=== PATIENT | male | born 1945 | race Caucasian/White ===

== ENCOUNTER 2017-03-31 11:33 | Inpatient (IN) | payer OTHER ==
[~2017-03-31] VITALS: Ht 172.7 cm; Wt 80.0 kg
[~2017-03-31 11:33] MED LIST: AMIO100T4 PO; ASPI325T80 PO; CARV25TA12 PO; EZET1TAB35 PO; LISI-465 PO; MAGN100T3 PO; MULT1TAB57 PO; NIAC500C8 PO; NITR0.4T SL
[2017-03-31] MEDS ORDERED: TRIA10.8 INH (12:22)
[2017-03-31] MEDS ORDERED: FURO20TA3 PO (12:22)
[2017-03-31] MEDS ORDERED: HYDR10TA4 PO (12:22)
[2017-03-31 12:28] LABS: BASOPHILS # (AUTO) 0.02 x10^3/uL (0-0.1); BASOPHILS % (AUTO) 0 % (0-1); EOSINOPHILS # (AUTO) 0.13 x10^3/uL (0-0.4); EOSINOPHILS % (AUTO) 3 % (1-7); LYMPHOCYTES # (AUTO) 1.33 x10^3/uL (1-3.4); LYMPHOCYTES % (AUTO) 25 % (22-44); MD NO; MEAN CORPUSCULAR HEMOGLOBIN 27.3 pg (27.5-34.5); MEAN CORPUSCULAR HGB CONC 32.8 g/dL (33.2-36.2); MEAN CORPUSCULAR VOLUME 83.2 fL (81-97); MEAN PLATELET VOLUME 8.8 fL (7.4-10.4); MONOCYTES # (AUTO) 0.48 x10^3/uL (0.2-0.8); MONOCYTES % (AUTO) 9 % (2-9); NEUTROPHILS # (AUTO) 3.37 x10^3/uL (1.8-6.8); NEUTROPHILS % (AUTO) 63 % (42-75); PLATELET COUNT 175 x10^3/uL (130-400); RED BLOOD COUNT 5.51 x10^6/uL (4.38-5.82); RED CELL DISTRIBUTION WIDTH 14.5 % (9.4-14.8)
[2017-03-31] MEDS ORDERED: NITROGLYCERIN SINGLE TAB 0.4 MG SL PRN (12:30)
[2017-03-31 12:37] LABS: ANION GAP 3 mmol/L (5-15); CALCIUM 8.9 mg/dL (8.5-10.1); CHLORIDE 108 mmol/L (98-107); CREATININE 1.17 mg/dL (0.7-1.3)
[2017-03-31] MEDS ORDERED: NITROGLYCERIN SINGLE TAB 0.4 MG SL ONE (12:40)
[2017-03-31] MEDS ORDERED: MIDAZOLAM 1 MG/ML, 2ML ONE ×2 (13:37→14:14)
[2017-03-31] MEDS ORDERED: LIDOCAINE 2%, 20ML ONE (13:38)
[2017-03-31] MEDS ORDERED: HEPARIN 1,000 UNITS/ML, 10ML ONE (13:38)
[2017-03-31] MEDS ORDERED: BIVALIRUDIN 250 MG ONE (13:38)
[2017-03-31] MEDS ORDERED: TICAGRELOR 90 MG TABLET ONE (13:38)
[2017-03-31] MEDS ORDERED: NITROGLYCERIN 5 MG/ML, 10ML ONE (13:38)
[2017-03-31] MEDS ORDERED: FENTANYL PF 100 MCG/2ML ONE (13:38)
[2017-03-31] MEDS ORDERED: NITROGLYCERIN 0.4 MG/SPRAY SL PRN (14:00)
[2017-03-31] MEDS ORDERED: ASPIRIN 325 MG TABLET EC PO ONE (14:00)
[2017-03-31] MEDS ORDERED: NITROGLYCERIN 0.4 MG BOTTLE (25 TABS) SL PRN ×2 (14:00)
[2017-03-31 14:05] LABS: CHOL/HDL RATIO 2.7; LDL/HDL RATIO 1.3 (0.5-3.0)
[2017-03-31] MEDS ORDERED: ACETAMINOPHEN 325 MG TABLET PO PRN (15:00)
[2017-03-31 15:55] VITALS: BP 118/66
[2017-03-31] MEDS: SODIUM CHLORIDE 0.9% 1,000 ML IV SCH (17:31)
[2017-03-31 19:17] VITALS: BP 123/62
[2017-03-31] MEDS: CARVEDILOL 12.5 MG TABLET PO SCH (20:20)
[2017-03-31] MEDS: SODIUM CHLORIDE FLUSH 10ML SYR IVF SCH (20:20)
[2017-03-31] MEDS ORDERED: AMIODARONE 200 MG TABLET PO SCH (21:00)
[2017-03-31] MEDS ORDERED: ASPIRIN 325 MG TABLET EC PO SCH (21:00)
[2017-03-31] MEDS ORDERED: SIMVASTATIN 40 MG TABLET PO SCH (21:00)
[2017-04-01] MEDS: SODIUM CHLORIDE 0.9% 1,000 ML IV SCH ×3 (00:10→09:57)
[2017-04-01 03:00] VITALS: BP 125/75
[2017-04-01 05:47] LABS: TROPONIN I 0.021 ng/mL (0.000-0.045)
[2017-04-01 05:52] LABS: ALBUMIN 3.3 g/dL (3.4-5.0); ANION GAP 7 mmol/L (5-15); CALCIUM 8.4 mg/dL (8.5-10.1); CHLORIDE 109 mmol/L (98-107); CREATININE 0.98 mg/dL (0.7-1.3)
[2017-04-01] MEDS ORDERED: ASPIRIN 325 MG TABLET EC PO SCH (06:00)
[2017-04-01 07:51] VITALS: BP 137/74
[2017-04-01] MEDS: SODIUM CHLORIDE FLUSH 10ML SYR IVF SCH (07:56)
[2017-04-01] MEDS: CARVEDILOL 12.5 MG TABLET PO SCH (07:56)
[2017-04-01] MEDS ORDERED: MAGNESIUM OXIDE 400 MG TABLET PO SCH (09:00)
[2017-04-01] MEDS ORDERED: hydrOXyzine 10MG TABLET PO SCH (09:00)
[2017-04-01] MEDS ORDERED: LISINOPRIL 5 MG TABLET PO SCH (09:00)
[2017-04-01] MEDS ORDERED: FUROSEMIDE 40 MG TABLET PO SCH (09:00)
[2017-04-01] MEDS ORDERED: MULTIVITAMIN 1 TABLET PO SCH (09:00)
[2017-04-01] MEDS ORDERED: SPIR25TA PO (10:47)
[2017-04-01] MEDS ORDERED: EZETIMIBE 10 MG TABLET PO SCH (21:00)
== END 2017-04-01 12:20 | disposition home or self-care (01) | DRG 287 ==
LOC: EDIP 13:32 → ED 13:47 → 5SO 15:38 → DCLOUNGE 04-01 11:54
PROVIDERS: ADMIT Internal Medicine Cardiovascular Disease; ATTEND Internal Medicine Cardiovascular Disease
PROC: 4A023N7 Measurement of Cardiac Sampling and Pressure, Left Heart, Percutaneous Approach (ICD-10-PCS; principal; 2017-03-31)
PROC: B2111ZZ Fluoroscopy of Multiple Coronary Arteries using Low Osmolar Contrast (ICD-10-PCS; 2017-03-31)
PROC: B2121ZZ Fluoroscopy of Single Coronary Artery Bypass Graft using Low Osmolar Contrast (ICD-10-PCS; 2017-03-31)
PROC: B2181ZZ Fluoroscopy of Left Internal Mammary Bypass Graft using Low Osmolar Contrast (ICD-10-PCS; 2017-03-31)
PROC: B2151ZZ Fluoroscopy of Left Heart using Low Osmolar Contrast (ICD-10-PCS; 2017-03-31)
DX: I25.110 Atherosclerotic heart disease of native coronary artery with unstable angina pectoris (principal); I11.0 Hypertensive heart disease with heart failure; I50.9 Heart failure, unspecified; I25.2 Old myocardial infarction; E78.5 Hyperlipidemia, unspecified; I25.5 Ischemic cardiomyopathy; Z79.82 Long term (current) use of aspirin; Z86.79 Personal history of other diseases of the circulatory system; Z87.891 Personal history of nicotine dependence; Z95.1 Presence of aortocoronary bypass graft; Z95.810 Presence of automatic (implantable) cardiac defibrillator
CPT/HCPCS: 36415; 71045; 80048; 80061; 82040; 84484; 85025; 93005; 93459; 99156; 99157; 99285; C1760; C1894; J0583; J1644; J2250; J3010; J3490; J7030; Q9967

== ENCOUNTER 2017-08-28 14:09 | Inpatient (IN) | payer OTHER ==
[~2017-08-28] VITALS: Ht 172.7 cm; Wt 78.8 kg
[~2017-08-28 14:09] MED LIST changes: +FURO20TA3 PO; +HYDR10TA4 PO; +SPIR25TA PO; +TRIA10.8 INH
[2017-08-28] MEDS ORDERED: HEPARIN 5,000 UNITS/ML, 1ML IV ONE (14:30)
[2017-08-28] MEDS ORDERED: METOPROLOL 1 MG/ML, 5ML IVPush PRN (14:30)
[2017-08-28] MEDS ORDERED: HEPARIN 5,000 UNITS/ML, 1ML ONE (14:35)
[2017-08-28] MEDS ORDERED: HEPARIN 25,000 UNITS/500ML PMX 500 ML ONE (14:36)
[2017-08-28] MEDS ORDERED: METOPROLOL 1 MG/ML, 5ML ONE ×2 (14:37→15:21)
[2017-08-28 14:51] LABS: T4 (THYROXINE) 11.7 mcg/dL (4.5-12.1)
[2017-08-28] MEDS: HEPARIN 25,000 UNITS/500ML PMX 500 ML IV PRN (14:54)
[2017-08-28 15:00] LABS: TROPONIN I 0.218 ng/mL (0.000-0.045)
[2017-08-28] MEDS ORDERED: AMIODARONE 900 MG in DEXTROSE 5% 482 ML IV PRN (15:00)
[2017-08-28] MEDS ORDERED: FILTER 0.22 MICRON IV ONE (15:00)
[2017-08-28] MEDS ORDERED: AMIODARONE 150 MG in DEXTROSE 5% 100 ML IV ONE (15:00)
[2017-08-28] MEDS ORDERED: hydrALAzine 20 MG/ML, 1ML IVPush PRN (16:30)
[2017-08-28] MEDS ORDERED: ACETAMINOPHEN 325 MG TABLET PO PRN (16:30)
[2017-08-28 16:49] VITALS: BP 113/71
[2017-08-28 17:03] LABS: BASOPHILS # (AUTO) 0.05 x10^3/uL (0-0.1); BASOPHILS % (AUTO) 1 % (0-1); EOSINOPHILS % (AUTO) 1 % (1-7); LYMPHOCYTES # (AUTO) 1.45 x10^3/uL (1-3.4); LYMPHOCYTES % (AUTO) 18 % (22-44); MD NO; MEAN CORPUSCULAR HGB CONC 32.9 g/dL (33.2-36.2); MEAN CORPUSCULAR VOLUME 85.1 fL (81-97); MEAN PLATELET VOLUME 8.8 fL (7.4-10.4); MONOCYTES # (AUTO) 0.44 x10^3/uL (0.2-0.8); MONOCYTES % (AUTO) 5 % (2-9); NEUTROPHILS # (AUTO) 6.25 x10^3/uL (1.8-6.8); NEUTROPHILS % (AUTO) 75 % (42-75); PLATELET COUNT 192 x10^3/uL (130-400); RED BLOOD COUNT 5.21 x10^6/uL (4.38-5.82); RED CELL DISTRIBUTION WIDTH 14.4 % (9.4-14.8)
[2017-08-28 17:14] LABS: ALANINE AMINOTRANSFERASE 28 U/L (12-78); ALBUMIN 3.7 g/dL (3.4-5.0); ANION GAP 8 mmol/L (5-15); CALCIUM 8.6 mg/dL (8.5-10.1); CHLORIDE 111 mmol/L (98-107); CREATININE 1.09 mg/dL (0.7-1.3)
[2017-08-28 17:18] LABS: ALKALINE PHOSPHATASE 65 U/L (45-117); BILIRUBIN,TOTAL 0.6 mg/dL (0.2-1.0); FREE T4 (FREE THYROXINE) 1.33 ng/dL (0.76-1.46); TOTAL PROTEIN 6.7 g/dL (6.4-8.2); TROPONIN I 0.356 ng/mL (0.000-0.045)
[2017-08-28 17:29] LABS: PROTHROMBIN TIME 11.4 Seconds (9.6-11.5)
[2017-08-28 19:18] VITALS: BP 99/56
[2017-08-28 21:36] LABS: TROPONIN I 0.629 ng/mL (0.000-0.045)
[2017-08-29 01:57] VITALS: BP 101/60
[2017-08-29 04:14] LABS: ALBUMIN 3.3 g/dL (3.4-5.0); ANION GAP 5 mmol/L (5-15); CALCIUM 8.3 mg/dL (8.5-10.1); CHLORIDE 109 mmol/L (98-107)
[2017-08-29 04:18] LABS: ALANINE AMINOTRANSFERASE 25 U/L (12-78); ALKALINE PHOSPHATASE 56 U/L (45-117); BILIRUBIN,TOTAL 0.6 mg/dL (0.2-1.0); CHOL/HDL RATIO 2.7; CHOLESTEROL, TOTAL 128 mg/dL (140-239); HDL CHOL % 38 % (26-37); HDL CHOLESTEROL (DIRECT) 48 mg/dL (40-60); LDL CHOLESTEROL,CALCULATED 63 mg/dL (54-169); LDL/HDL RATIO 1.3 (0.5-3.0); TOTAL PROTEIN 5.7 g/dL (6.4-8.2); TRIGLYCERIDES 86 mg/dL (50-200); VLDL CHOLESTEROL 17 mg/dL (0-25)
[2017-08-29 04:20] LABS: TROPONIN I 0.494 ng/mL (0.000-0.045)
[2017-08-29 04:24] LABS: BASOPHILS # (AUTO) 0.03 x10^3/uL (0-0.1); BASOPHILS % (AUTO) 1 % (0-1); EOSINOPHILS # (AUTO) 0.16 x10^3/uL (0-0.4); EOSINOPHILS % (AUTO) 3 % (1-7); LYMPHOCYTES % (AUTO) 25 % (22-44); MD NO; MEAN CORPUSCULAR HEMOGLOBIN 27.7 pg (27.5-34.5); MEAN CORPUSCULAR HGB CONC 32.2 g/dL (33.2-36.2); MEAN CORPUSCULAR VOLUME 86.2 fL (81-97); MEAN PLATELET VOLUME 8.8 fL (7.4-10.4); MONOCYTES # (AUTO) 0.46 x10^3/uL (0.2-0.8); MONOCYTES % (AUTO) 7 % (2-9); NEUTROPHILS # (AUTO) 4.06 x10^3/uL (1.8-6.8); NEUTROPHILS % (AUTO) 64 % (42-75); PLATELET COUNT 159 x10^3/uL (130-400); RED BLOOD COUNT 4.75 x10^6/uL (4.38-5.82); RED CELL DISTRIBUTION WIDTH 14.2 % (9.4-14.8)
[2017-08-29] MEDS: HEPARIN 5,000 UNITS/ML, 1ML IV PRN (04:42)
[2017-08-29 06:57] VITALS: BP 108/64
[2017-08-29 11:32] LABS: TROPONIN I 0.321 ng/mL (0.000-0.045)
[2017-08-29 14:20] VITALS: BP 108/64
[2017-08-29] MEDS: HEPARIN 25,000 UNITS/500ML PMX 500 ML IV PRN (15:14)
[2017-08-29] MEDS: AMIODARONE 450 MG in DEXTROSE 5% 241 ML IV PRN (15:15)
[2017-08-29] MEDS: ATORVASTATIN 80 MG TABLET PO SCH (19:31)
[2017-08-29 19:32] VITALS: BP 135/75
[2017-08-30 00:45] VITALS: BP 111/66
[2017-08-30 05:24] LABS: BASOPHILS # (AUTO) 0.04 x10^3/uL (0-0.1); BASOPHILS % (AUTO) 1 % (0-1); EOSINOPHILS # (AUTO) 0.09 x10^3/uL (0-0.4); EOSINOPHILS % (AUTO) 1 % (1-7); LYMPHOCYTES # (AUTO) 1.29 x10^3/uL (1-3.4); LYMPHOCYTES % (AUTO) 20 % (22-44); MD NO; MEAN CORPUSCULAR HEMOGLOBIN 28.3 pg (27.5-34.5); MEAN CORPUSCULAR HGB CONC 33.3 g/dL (33.2-36.2); MEAN CORPUSCULAR VOLUME 84.8 fL (81-97); MEAN PLATELET VOLUME 8.7 fL (7.4-10.4); MONOCYTES # (AUTO) 0.55 x10^3/uL (0.2-0.8); MONOCYTES % (AUTO) 9 % (2-9); NEUTROPHILS # (AUTO) 4.42 x10^3/uL (1.8-6.8); NEUTROPHILS % (AUTO) 69 % (42-75); PLATELET COUNT 158 x10^3/uL (130-400); RED BLOOD COUNT 5.07 x10^6/uL (4.38-5.82); RED CELL DISTRIBUTION WIDTH 14.5 % (9.4-14.8)
[2017-08-30 05:36] LABS: ANION GAP 8 mmol/L (5-15); CALCIUM 8.7 mg/dL (8.5-10.1); CHLORIDE 106 mmol/L (98-107); CREATININE 1.21 mg/dL (0.7-1.3)
[2017-08-30] MEDS: AMIODARONE 450 MG in DEXTROSE 5% 241 ML IV PRN (06:05)
[2017-08-30] MEDS: HEPARIN 5,000 UNITS/ML, 1ML IV PRN (06:05)
[2017-08-30 08:25] VITALS: BP 121/73
[2017-08-30] MEDS ORDERED: MIDAZOLAM 1 MG/ML, 5ML ONE (12:29)
[2017-08-30] MEDS ORDERED: VERAPAMIL 2.5 MG/ML, 2ML ONE (12:29)
[2017-08-30] MEDS ORDERED: TICAGRELOR 90 MG TABLET ONE (12:29)
[2017-08-30] MEDS ORDERED: FENTANYL PF 100 MCG/2ML ONE (12:29)
[2017-08-30] MEDS ORDERED: LIDOCAINE-MPF 2% ,5ML ONE (12:30)
[2017-08-30] MEDS ORDERED: HEPARIN 1,000 UNITS/ML, 10ML ONE (12:30)
[2017-08-30] MEDS ORDERED: BIVALIRUDIN 250 MG ONE (12:30)
[2017-08-30] MEDS ORDERED: LIDOCAINE/PF 1%, 30ML ONE (12:56)
[2017-08-30 13:40] VITALS: BP 143/81
[2017-08-30 16:39] VITALS: BP 106/67
[2017-08-30 19:53] VITALS: BP 113/64
[2017-08-30] MEDS: ATORVASTATIN 80 MG TABLET PO SCH (20:21)
[2017-08-31 01:00] VITALS: BP 148/76
[2017-08-31 06:58] VITALS: BP 145/79
[2017-08-31] MEDS ORDERED: AMIODARONE 200 MG TABLET PO SCH (09:00)
[2017-08-31 14:04] VITALS: BP 123/74
[2017-08-31 14:37] LABS: PARTIAL THROMBOPLASTIN TIME > 153 Seconds (25-31)
[2017-08-31 18:26] VITALS: BP 154/81
[2017-08-31] MEDS: CARVEDILOL 3.125 MG TABLET PO SCH (18:27)
[2017-08-31 18:48] VITALS: BP 125/68
[2017-08-31] MEDS: ATORVASTATIN 80 MG TABLET PO SCH (20:04)
[2017-08-31] MEDS ORDERED: MAGNESIUM HYDROXIDE 8%, 30ML UDC PO PRN (22:30)
[2017-08-31] MEDS ORDERED: MAGNESIUM HYDROXIDE 8%, 30ML UDC ONE (22:32)
[2017-09-01 00:33] VITALS: BP 125/72
[2017-09-01 06:34] VITALS: BP 145/77
[2017-09-01] MEDS: CARVEDILOL 3.125 MG TABLET PO SCH (06:36)
[2017-09-01 06:48] VITALS: BP 128/79
[2017-09-01] MEDS ORDERED: AMIODARONE 200 MG TABLET PO SCH (09:00)
[2017-09-01] MEDS ORDERED: LISINOPRIL 5 MG TABLET PO SCH (09:00)
[2017-09-01] MEDS ORDERED: AMIO200T42 PO ×2 (11:24)
[2017-09-01] MEDS ORDERED: ATOR-2 PO (11:24)
[2017-09-01] MEDS ORDERED: LISI5TAB7 PO (11:24)
[2017-09-01] MEDS ORDERED: CARVEDILOL 12.5 MG TABLET PO SCH (18:00)
== END 2017-09-01 15:24 | disposition home or self-care (01) | DRG 281 ==
LOC: ED 15:28 → EDIP 15:29 → ED 15:56 → 5SO 16:33 → DCLOUNGE 09-01 14:23
PROVIDERS: ADMIT Hospitalist; ATTEND Hospitalist
PROC: 4A023N7 Measurement of Cardiac Sampling and Pressure, Left Heart, Percutaneous Approach (ICD-10-PCS; principal; 2017-08-30)
PROC: B2111ZZ Fluoroscopy of Multiple Coronary Arteries using Low Osmolar Contrast (ICD-10-PCS; 2017-08-30)
PROC: B2151ZZ Fluoroscopy of Left Heart using Low Osmolar Contrast (ICD-10-PCS; 2017-08-30)
PROC: B2181ZZ Fluoroscopy of Left Internal Mammary Bypass Graft using Low Osmolar Contrast (ICD-10-PCS; 2017-08-30)
PROC: B21F1ZZ Fluoroscopy of Other Bypass Graft using Low Osmolar Contrast (ICD-10-PCS; 2017-08-30)
PROC: B2131ZZ Fluoroscopy of Multiple Coronary Artery Bypass Grafts using Low Osmolar Contrast (ICD-10-PCS; 2017-08-30)
DX: I21.4 Non-ST elevation (NSTEMI) myocardial infarction (principal); I25.810 Atherosclerosis of coronary artery bypass graft(s) without angina pectoris; I47.2 Ventricular tachycardia; I50.42 Chronic combined systolic (congestive) and diastolic (congestive) heart failure; E78.5 Hyperlipidemia, unspecified; I07.1 Rheumatic tricuspid insufficiency; I11.0 Hypertensive heart disease with heart failure; I25.5 Ischemic cardiomyopathy; I34.0 Nonrheumatic mitral (valve) insufficiency; I35.1 Nonrheumatic aortic (valve) insufficiency; Z79.899 Other long term (current) drug therapy; Z87.891 Personal history of nicotine dependence; Z95.1 Presence of aortocoronary bypass graft; Z95.810 Presence of automatic (implantable) cardiac defibrillator
CPT/HCPCS: 36415; 80048; 80053; 80061; 83735; 83880; 84100; 84436; 84439; 84443; 84484; 85025; 85520; 85610; 85730; 93005; 93306; 93459; 96365; 96375; 96376; 99156; 99157; 99291; C1760; C1769; C1894; J0583; J1644; J2250; J3010; J3490; J7060; J0282; Q9967

== ENCOUNTER 2019-03-24 06:30 | Day surgery (SDC) | payer OTHER ==
[~2019-03-24] VITALS: Ht 172.7 cm; Wt 77.3 kg
[~2019-03-24 06:30] MED LIST changes: +AMIO200T42 PO; +ASPI81TA45 PO; +ATOR-2 PO; +CARV12.543 PO; +CARV3.122 PO; +EZET1TAB65 PO; +HYDR-2995 PO; -HYDR10TA4 PO; +LISI5TAB7 PO; +LORA10TA72 PO; +MEXI150C PO; -NITR0.4T SL; +NITR0.4T41 SL; +POTA20TA14 PO; +TICA90TA PO
[2019-03-24] MEDS ORDERED: LIDOCAINE 1%, 20ML ONE (06:56)
[2019-03-24] MEDS ORDERED: FENTANYL PF 100 MCG/2ML ONE (06:56)
[2019-03-24] MEDS ORDERED: CEFAZOLIN PMX 1GM/50ML 50 ML ONE (06:56)
[2019-03-24] MEDS ORDERED: MIDAZOLAM 1 MG/ML, 2ML ONE ×2 (06:56→08:12)
[2019-03-24] MEDS ORDERED: CEFAZOLIN 1,000 MG ONE (06:57)
[2019-03-24] MEDS ORDERED: SODIUM CHLORIDE 0.9% 1,000 ML IV SCH (07:06)
[2019-03-24 07:10] VITALS: BP 142/73
[2019-03-24] MEDS ORDERED: FURO20TA3 PO (07:15)
[2019-03-24] MEDS ORDERED: CEFAZOLIN PMX 1GM/50ML 50 ML IVPB ONE (07:30)
[2019-03-24] MEDS ORDERED: EPHEDRINE 50 MG/ML, 1ML ONE (08:09)
[2019-03-24] MEDS ORDERED: ONDANSETRON 2MG/ML, 2ML ONE (08:09)
[2019-03-24] MEDS ORDERED: FENTANYL PF 250 MCG/5ML ONE (08:12)
[2019-03-24] MEDS ORDERED: DEXAMETHASONE 4 MG/ML, 1ML ONE (08:20)
[2019-03-24] MEDS ORDERED: SUCCINYLCHOLINE 20 MG/ML, 10ML ONE (08:23)
[2019-03-24] MEDS ORDERED: ROCURONIUM 10MG/ML,5ML ONE (08:23)
[2019-03-24] MEDS ORDERED: PROPOFOL 10 MG/ML, 20ML ONE (08:23)
[2019-03-24] MEDS ORDERED: NITROGLYCERIN SINGLE TAB 0.4 MG SL PRN (10:00)
[2019-03-24] MEDS ORDERED: EPHEDRINE 50 MG/ML, 1ML IVPush PRN (10:00)
[2019-03-24] MEDS ORDERED: HOLD MEDICATION MC PRN (10:00)
[2019-03-24] MEDS ORDERED: PROMETHAZINE 25 MG/ML, 1ML IV PRN (10:00)
[2019-03-24] MEDS ORDERED: ONDANSETRON ODT 8 MG PO PRN (10:00)
[2019-03-24] MEDS ORDERED: PROMETHAZINE 12.5 MG SUPP PR PRN (10:00)
[2019-03-24] MEDS ORDERED: LABETALOL 5MG/ML, 20ML IV PRN (10:00)
[2019-03-24] MEDS ORDERED: ONDANSETRON 2MG/ML, 2ML IV PRN (10:00)
[2019-03-24] MEDS ORDERED: ALBUTEROL SULFATE 2.5 MG/3 ML NPPB PRN (10:00)
[2019-03-24] MEDS ORDERED: MEPERIDINE/PF 25MG/ML,1ML IVPush PRN (10:00)
[2019-03-24] MEDS ORDERED: OXYcodone 5 MG/5 ML ORAL.SOL UDC PO PRN (10:00)
[2019-03-24] MEDS ORDERED: MIDAZOLAM 1 MG/ML, 2ML IV PRN (10:00)
[2019-03-24] MEDS ORDERED: hydrALAzine 20 MG/ML, 1ML IV PRN (10:00)
[2019-03-24] MEDS ORDERED: FENTANYL PF 100 MCG/2ML IV PRN (10:00)
[2019-03-24] MEDS ORDERED: DIAZEPAM 5 MG/ML, 2ML IVPush PRN (10:00)
[2019-03-24] MEDS ORDERED: HALOPERIDOL 5 MG/ML IV PRN (10:00)
[2019-03-24] MEDS ORDERED: HYDROmorphone 2 MG/ML, 1ML IVPush PRN (10:00)
[2019-03-24] MEDS ORDERED: ACETAMINOPHEN 325 MG TABLET PO PRN (10:00)
[2019-03-24 11:00] VITALS: BP 112/62
[2019-03-24 13:40] VITALS: BP 106/51
[2019-03-24] MEDS ORDERED: EZETIMIBE 10 MG TABLET PO SCH (21:00)
[2019-03-24] MEDS ORDERED: ATORVASTATIN 20 MG TABLET PO SCH (21:00)
[2019-03-24] MEDS ORDERED: SODIUM CHLORIDE FLUSH 10ML SYR IVF SCH (21:00)
[2019-03-24] MEDS ORDERED: MEXILETINE 150 MG CAPSULE PO SCH (21:00)
[2019-03-25] MEDS ORDERED: LORATADINE 10 MG TABLET PO SCH (09:00)
[2019-03-25] MEDS ORDERED: FUROSEMIDE 20 MG TABLET PO SCH (09:00)
[2019-03-25] MEDS ORDERED: LISINOPRIL 5 MG TABLET PO SCH (09:00)
[2019-03-25] MEDS ORDERED: ASPIRIN 81 MG TABLET EC PO SCH (09:00)
[2019-03-25] MEDS ORDERED: MULTIVITAMIN 1 TABLET PO SCH (09:00)
[2019-03-25] MEDS ORDERED: MAGNESIUM OXIDE 400 MG TABLET PO SCH (09:00)
[2019-03-25] MEDS ORDERED: AMIODARONE 200 MG TABLET PO SCH (09:00)
[2019-03-25] MEDS ORDERED: POTASSIUM CHLORIDE 20 MEQ TAB.ER.PRT PO SCH (09:00)
[2019-03-25] MEDS ORDERED: SPIRONOLACTONE 25 MG TABLET PO SCH (09:00)
== END 2019-03-24 15:17 | disposition home or self-care (01) ==
LOC: CACL 06:30 → 5SO 11:07 → CACL 15:17
PROVIDERS: ATTEND Internal Medicine Cardiovascular Disease
DX: I44.7 Left bundle-branch block, unspecified (principal); I11.0 Hypertensive heart disease with heart failure; I50.9 Heart failure, unspecified; I25.5 Ischemic cardiomyopathy; I47.2 Ventricular tachycardia; I45.89 Other specified conduction disorders; I25.10 Atherosclerotic heart disease of native coronary artery without angina pectoris; Z79.82 Long term (current) use of aspirin; Z79.899 Other long term (current) drug therapy; Z87.891 Personal history of nicotine dependence; Z88.5 Allergy status to narcotic agent; Z95.1 Presence of aortocoronary bypass graft
CPT/HCPCS: 33224; 36005; C1769; C1894; J0330; J0690; J1100; J2250; J2405; J2704; J3010; Q9967; G0378

== ENCOUNTER 2019-05-02 07:48 | Day surgery (SDC) | payer OTHER ==
[~2019-05-02] VITALS: Ht 172.7 cm; Wt 77.3 kg
[2019-05-02 08:52] VITALS: BP 140/72
[2019-05-02] MEDS ORDERED: SODIUM CHLORIDE 0.9% 1,000 ML IV SCH (10:00)
[2019-05-02] MEDS ORDERED: CEFAZOLIN PMX 1GM/50ML 50 ML IVPB ONE (10:00)
[2019-05-02] MEDS ORDERED: MIDAZOLAM 1 MG/ML, 5ML ONE (11:01)
[2019-05-02] MEDS ORDERED: FENTANYL PF 250 MCG/5ML ONE (11:01)
[2019-05-02] MEDS ORDERED: CEFAZOLIN PMX 1GM/50ML 50 ML ONE (11:02)
[2019-05-02] MEDS ORDERED: CEFAZOLIN 1,000 MG ONE (11:02)
[2019-05-02] MEDS ORDERED: LIDOCAINE 1%, 20ML ONE (11:02)
== END 2019-05-02 13:47 | disposition home or self-care (01) ==
LOC: CACL 07:48
PROVIDERS: ATTEND Internal Medicine Cardiovascular Disease
DX: Z45.02 Encounter for adjustment and management of automatic implantable cardiac defibrillator (principal); I25.5 Ischemic cardiomyopathy; I47.2 Ventricular tachycardia; I10 Essential (primary) hypertension; I25.10 Atherosclerotic heart disease of native coronary artery without angina pectoris; E78.5 Hyperlipidemia, unspecified; Z79.82 Long term (current) use of aspirin; Z79.899 Other long term (current) drug therapy; Z88.5 Allergy status to narcotic agent; Z88.8 Allergy status to other drugs, medicaments and biological substances; Z95.1 Presence of aortocoronary bypass graft
CPT/HCPCS: 33263; 99156; 99157; C1882; J0690; J2250; J3010; 33229

== ENCOUNTER → 2019-05-18 | Outpatient (CLI) | payer OTHER ==
[~2019-05-18] MED LIST changes: +REGADENOSON 0.4 MG/5 ML SYRINGE ONE
== END | disposition home or self-care (01) ==
LOC: CFH 12:14
PROVIDERS: ATTEND Internal Medicine Cardiovascular Disease
DX: I25.89 Other forms of chronic ischemic heart disease (principal); I25.5 Ischemic cardiomyopathy
CPT/HCPCS: 78452; 93017; A9502; J2785

== ENCOUNTER 2019-07-28 05:50 | Inpatient (IN) | payer OTHER ==
[~2019-07-28] VITALS: Ht 172.7 cm; Wt 79.4 kg
[~2019-07-28 05:50] MED LIST changes: -REGADENOSON 0.4 MG/5 ML SYRINGE ONE
[2019-07-28] MEDS ORDERED: SODIUM CHLORIDE 0.9% 1,000 ML IV SCH (06:22)
[2019-07-28 06:34] VITALS: BP 141/72
[2019-07-28] MEDS ORDERED: CEPH-376 PO (06:46)
[2019-07-28 06:56] LABS: BASOPHILS # (AUTO) 0.06 x10^3/uL (0-0.1); BASOPHILS % (AUTO) 1 % (0-1); EOSINOPHILS # (AUTO) 0.03 x10^3/uL (0-0.4); EOSINOPHILS % (AUTO) 1 % (1-7); LYMPHOCYTES # (AUTO) 0.95 x10^3/uL (1-3.4); LYMPHOCYTES % (AUTO) 16 % (22-44); MD NO; MEAN CORPUSCULAR HEMOGLOBIN 27.6 pg (27.5-34.5); MEAN CORPUSCULAR HGB CONC 32.6 g/dL (33.2-36.2); MEAN CORPUSCULAR VOLUME 84.6 fL (81-97); MEAN PLATELET VOLUME 8.2 fL (7.4-10.4); MONOCYTES # (AUTO) 0.51 x10^3/uL (0.2-0.8); MONOCYTES % (AUTO) 8 % (2-9); NEUTROPHILS # (AUTO) 4.43 x10^3/uL (1.8-6.8); NEUTROPHILS % (AUTO) 74 % (42-75); PLATELET COUNT 231 x10^3/uL (130-400); RED BLOOD COUNT 5.15 x10^6/uL (4.38-5.82); RED CELL DISTRIBUTION WIDTH 14.5 % (9.4-14.8)
[2019-07-28 07:05] LABS: ANION GAP 9 mmol/L (5-15); CALCIUM 8.6 mg/dL (8.5-10.1); CHLORIDE 108 mmol/L (98-107); CREATININE 1.37 mg/dL (0.7-1.3)
[2019-07-28] MEDS ORDERED: FENTANYL PF 250 MCG/5ML ONE (08:01)
[2019-07-28] MEDS ORDERED: ROCURONIUM 10 MG/ML,10ML ONE (08:17)
[2019-07-28] MEDS ORDERED: ONDANSETRON 2MG/ML, 2ML ONE ×3 (08:17→16:09)
[2019-07-28] MEDS ORDERED: SUCCINYLCHOLINE 20 MG/ML, 10ML ONE (08:17)
[2019-07-28] MEDS ORDERED: PROPOFOL 10 MG/ML, 20ML ONE (08:17)
[2019-07-28] MEDS ORDERED: CEFAZOLIN 1,000 MG ONE (08:31)
[2019-07-28] MEDS ORDERED: LIDOCAINE 1%, 20ML ONE (08:45)
[2019-07-28] MEDS ORDERED: EPHEDRINE 50 MG/ML, 1ML ONE (11:12)
[2019-07-28] MEDS ORDERED: HOLD MEDICATION MC PRN (11:30)
[2019-07-28] MEDS ORDERED: NITROGLYCERIN SINGLE TAB 0.4 MG SL PRN (11:30)
[2019-07-28] MEDS ORDERED: EPHEDRINE 50 MG/ML, 1ML IVPush PRN (11:30)
[2019-07-28] MEDS ORDERED: PROMETHAZINE 25 MG/ML, 1ML IVPush PRN (11:30)
[2019-07-28] MEDS ORDERED: DIAZEPAM 5 MG/ML, 2ML IVPush PRN (11:30)
[2019-07-28] MEDS ORDERED: DIPHENHYDRAMINE 50 MG/ML, 1ML IVPush PRN (11:30)
[2019-07-28] MEDS ORDERED: EPHEDRINE 50 MG/ML, 1ML IM PRN (11:30)
[2019-07-28] MEDS ORDERED: HYDROmorphone 1 MG/ML, 1ML INJ IVPush PRN (11:30)
[2019-07-28] MEDS ORDERED: LORATADINE 10 MG TABLET PO PRN (11:30)
[2019-07-28] MEDS ORDERED: EPHEDRINE 50 MG/ML, 1ML IVPush ONE (11:30)
[2019-07-28] MEDS ORDERED: OXYcodone 5 MG/5 ML ORAL.SOL UDC PO PRN (11:30)
[2019-07-28] MEDS ORDERED: FENTANYL PF 100 MCG/2ML IV PRN (11:30)
[2019-07-28] MEDS ORDERED: ONDANSETRON 2MG/ML, 2ML IVPush PRN (11:30)
[2019-07-28 13:03] VITALS: BP 92/59
[2019-07-28 13:24] VITALS: BP 92/63
[2019-07-28] MEDS ORDERED: CEPHALEXIN 500 MG CAPSULE PO SCH (16:00)
[2019-07-28] MEDS: ONDANSETRON 2MG/ML, 2ML IVPush PRN (16:12)
[2019-07-28] MEDS: CEFTAROLINE 600 MG in SODIUM CHLORIDE 0.9% 100 ML IV SCH (18:22)
[2019-07-28 18:41] LABS: HCT (SEDRATE) 39.4 % (39.2-51.8)
[2019-07-28 18:43] LABS: ALBUMIN 3.2 g/dL (3.4-5.0); ANION GAP 8 mmol/L (5-15); C-REACTIVE PROTEIN, QUANT 0.78 mg/dL (0.02-0.49); CALCIUM 8.1 mg/dL (8.5-10.1); CHLORIDE 107 mmol/L (98-107)
[2019-07-28 18:45] LABS: MEAN CORPUSCULAR HEMOGLOBIN 27.7 pg (27.5-34.5); MEAN CORPUSCULAR HGB CONC 32.5 g/dL (33.2-36.2); MEAN CORPUSCULAR VOLUME 85.3 fL (81-97); MEAN PLATELET VOLUME 8.1 fL (7.4-10.4); PLATELET COUNT 206 x10^3/uL (130-400); RED BLOOD COUNT 4.62 x10^6/uL (4.38-5.82); RED CELL DISTRIBUTION WIDTH 14.7 % (9.4-14.8)
[2019-07-28 18:46] LABS: ALANINE AMINOTRANSFERASE 48 U/L (12-78); ALKALINE PHOSPHATASE 78 U/L (45-117); BILIRUBIN,TOTAL 0.8 mg/dL (0.2-1.0); CREATININE 1.25 mg/dL (0.7-1.3); TOTAL PROTEIN 6.4 g/dL (6.4-8.2)
[2019-07-28 19:11] LABS: MD YES
[2019-07-28 19:16] LABS: <RBC MORPHOLOGY> NORMAL; BAND#(MANUAL) 0.11 x10^3/uL; BANDS%(MANUAL) 1 % (0-7); LYMPH#(MANUAL) 0.34 x10^3/uL (1-3.4); LYMPHS% (MANUAL) 3 % (22-44); MONOS#(MANUAL) 0.68 x10^3/uL (0.3-2.7); MONOS% (MANUAL) 6 % (2-9); SEG#(MANUAL) 10.26 x10^3/uL (1.8-6.8); SEGS% (MANUAL) 90 % (42-75)
[2019-07-28 19:17] LABS: <PLATELET ESTIMATE> ADEQUATE; <PLT MORPHOLOGY> NORMAL PLT MORPH
[2019-07-28 20:57] VITALS: BP 95/55
[2019-07-28] MEDS: SODIUM CHLORIDE FLUSH 10ML SYR IVF SCH (21:00)
[2019-07-28] MEDS: EZETIMIBE 10 MG TABLET PO SCH (22:54)
[2019-07-28] MEDS: SIMVASTATIN 40 MG TABLET PO SCH (22:55)
[2019-07-28] MEDS: MEXILETINE 150 MG CAPSULE PO SCH (22:55)
[2019-07-29 01:19] VITALS: BP 84/45
[2019-07-29 03:29] VITALS: BP 93/54
[2019-07-29] MEDS: CEFTAROLINE 600 MG in SODIUM CHLORIDE 0.9% 100 ML IV SCH ×2 (06:00→18:40)
[2019-07-29 06:58] VITALS: BP 91/52
[2019-07-29] MEDS: SODIUM CHLORIDE FLUSH 10ML SYR IVF SCH ×2 (09:27→20:02)
[2019-07-29] MEDS: ASPIRIN 81 MG TABLET EC PO SCH (09:27)
[2019-07-29] MEDS: MEXILETINE 150 MG CAPSULE PO SCH ×2 (09:27→20:01)
[2019-07-29] MEDS: MULTIVITAMIN 1 TABLET PO SCH (09:28)
[2019-07-29] MEDS: FUROSEMIDE 20 MG TABLET PO SCH (09:28)
[2019-07-29] MEDS: AMIODARONE 200 MG TABLET PO SCH (09:28)
[2019-07-29] MEDS: MAGNESIUM OXIDE 400 MG TABLET PO SCH (09:29)
[2019-07-29] MEDS: POTASSIUM CHLORIDE 20 MEQ TAB.ER.PRT PO SCH (09:30)
[2019-07-29] MEDS: SPIRONOLACTONE 25 MG TABLET PO SCH (09:30)
[2019-07-29] MEDS: LISINOPRIL 5 MG TABLET PO SCH (09:41)
[2019-07-29 12:58] VITALS: BP 91/57
[2019-07-29] MEDS: ONDANSETRON 2MG/ML, 2ML IVPush PRN ×2 (13:45→18:40)
[2019-07-29 19:43] VITALS: BP 92/50
[2019-07-29] MEDS: EZETIMIBE 10 MG TABLET PO SCH (20:01)
[2019-07-29] MEDS: SIMVASTATIN 40 MG TABLET PO SCH (20:01)
[2019-07-30 01:07] VITALS: BP 125/64
[2019-07-30] MEDS: ONDANSETRON 2MG/ML, 2ML IVPush PRN (01:18)
[2019-07-30] MEDS: CEFTAROLINE 600 MG in SODIUM CHLORIDE 0.9% 100 ML IV SCH ×2 (06:19→18:08)
[2019-07-30 06:53] VITALS: BP 95/57
[2019-07-30] MEDS: POTASSIUM CHLORIDE 20 MEQ TAB.ER.PRT PO SCH (09:12)
[2019-07-30] MEDS: MAGNESIUM OXIDE 400 MG TABLET PO SCH (09:12)
[2019-07-30] MEDS: FUROSEMIDE 20 MG TABLET PO SCH (09:12)
[2019-07-30] MEDS: SPIRONOLACTONE 25 MG TABLET PO SCH (09:12)
[2019-07-30] MEDS: MULTIVITAMIN 1 TABLET PO SCH (09:12)
[2019-07-30] MEDS: ASPIRIN 81 MG TABLET EC PO SCH (09:12)
[2019-07-30] MEDS: AMIODARONE 200 MG TABLET PO SCH (09:13)
[2019-07-30] MEDS: MEXILETINE 150 MG CAPSULE PO SCH ×2 (09:13→21:20)
[2019-07-30] MEDS: SODIUM CHLORIDE FLUSH 10ML SYR IVF SCH ×2 (09:14→19:52)
[2019-07-30] MEDS: LISINOPRIL 5 MG TABLET PO SCH (11:16)
[2019-07-30 11:17] VITALS: BP 100/63
[2019-07-30 13:09] VITALS: BP 111/61
[2019-07-30] MEDS: CEFAZOLIN PMX 2GM/50ML 50 ML IVPB SCH (19:51)
[2019-07-30] MEDS: EZETIMIBE 10 MG TABLET PO SCH (19:51)
[2019-07-30] MEDS: SIMVASTATIN 40 MG TABLET PO SCH (19:52)
[2019-07-30 19:55] VITALS: BP 90/48
[2019-07-30 21:19] VITALS: BP 90/51
[2019-07-31 01:47] VITALS: BP 78/47
[2019-07-31 02:34] VITALS: BP 93/51
[2019-07-31] MEDS: CEFAZOLIN PMX 2GM/50ML 50 ML IVPB SCH ×3 (04:02→19:45)
[2019-07-31 05:56] LABS: MEAN CORPUSCULAR HEMOGLOBIN 27.5 pg (27.5-34.5); MEAN CORPUSCULAR HGB CONC 32.5 g/dL (33.2-36.2); MEAN CORPUSCULAR VOLUME 84.4 fL (81-97); MEAN PLATELET VOLUME 8.8 fL (7.4-10.4); PLATELET COUNT 164 x10^3/uL (130-400); RED BLOOD COUNT 4.04 x10^6/uL (4.38-5.82); RED CELL DISTRIBUTION WIDTH 14.7 % (9.4-14.8)
[2019-07-31 06:18] LABS: BASOPHILS # (AUTO) 0.02 x10^3/uL (0-0.1); BASOPHILS % (AUTO) 0 % (0-1); EOSINOPHILS # (AUTO) 0.02 x10^3/uL (0-0.4); EOSINOPHILS % (AUTO) 0 % (1-7); LYMPHOCYTES # (AUTO) 0.63 x10^3/uL (1-3.4); LYMPHOCYTES % (AUTO) 7 % (22-44); MD SCAN; MONOCYTES # (AUTO) 0.94 x10^3/uL (0.2-0.8); MONOCYTES % (AUTO) 10 % (2-9); NEUTROPHILS # (AUTO) 8.07 x10^3/uL (1.8-6.8); NEUTROPHILS % (AUTO) 83 % (42-75)
[2019-07-31 06:25] VITALS: BP 101/46
[2019-07-31 08:55] LABS: CLOSTRIDIUM DIFFICILE ANTIGEN POSITIVE; CLOSTRIDIUM DIFFICILE TOXIN NEGATIVE (Negative)
[2019-07-31] MEDS: SODIUM CHLORIDE FLUSH 10ML SYR IVF SCH ×2 (09:00→21:00)
[2019-07-31] MEDS ORDERED: PROPOFOL 10 MG/ML, 20ML ONE (09:26)
[2019-07-31] MEDS: MEXILETINE 150 MG CAPSULE PO SCH ×2 (11:08→21:58)
[2019-07-31] MEDS: LISINOPRIL 5 MG TABLET PO SCH (11:08)
[2019-07-31] MEDS: MULTIVITAMIN 1 TABLET PO SCH (11:08)
[2019-07-31] MEDS: FUROSEMIDE 20 MG TABLET PO SCH (11:08)
[2019-07-31] MEDS: MAGNESIUM OXIDE 400 MG TABLET PO SCH (11:08)
[2019-07-31] MEDS: AMIODARONE 200 MG TABLET PO SCH (11:08)
[2019-07-31] MEDS: POTASSIUM CHLORIDE 20 MEQ TAB.ER.PRT PO SCH (11:08)
[2019-07-31] MEDS: ASPIRIN 81 MG TABLET EC PO SCH (11:09)
[2019-07-31] MEDS: SPIRONOLACTONE 25 MG TABLET PO SCH (11:09)
[2019-07-31 12:28] VITALS: BP 95/58
[2019-07-31] MEDS ORDERED: HYDROcodone/APAP 5/325 TABLET PO PRN (13:00)
[2019-07-31 19:35] VITALS: BP 112/58
[2019-07-31] MEDS: SIMVASTATIN 40 MG TABLET PO SCH (21:58)
[2019-07-31] MEDS: EZETIMIBE 10 MG TABLET PO SCH (21:58)
[2019-07-31 23:58] VITALS: BP 91/52
[2019-08-01] MEDS: CEFAZOLIN PMX 2GM/50ML 50 ML IVPB SCH ×3 (03:51→20:22)
[2019-08-01 06:26] VITALS: BP 101/62
[2019-08-01] MEDS: FUROSEMIDE 20 MG TABLET PO SCH (08:56)
[2019-08-01] MEDS: ASPIRIN 81 MG TABLET EC PO SCH (08:56)
[2019-08-01] MEDS: MULTIVITAMIN 1 TABLET PO SCH (08:57)
[2019-08-01] MEDS: AMIODARONE 200 MG TABLET PO SCH (08:57)
[2019-08-01] MEDS: MAGNESIUM OXIDE 400 MG TABLET PO SCH (08:57)
[2019-08-01] MEDS: POTASSIUM CHLORIDE 20 MEQ TAB.ER.PRT PO SCH (08:57)
[2019-08-01] MEDS: SODIUM CHLORIDE FLUSH 10ML SYR IVF SCH ×2 (09:41→20:24)
[2019-08-01] MEDS: LISINOPRIL 5 MG TABLET PO SCH (09:41)
[2019-08-01] MEDS: SPIRONOLACTONE 25 MG TABLET PO SCH (09:41)
[2019-08-01] MEDS: MEXILETINE 150 MG CAPSULE PO SCH ×2 (09:41→20:23)
[2019-08-01 13:04] VITALS: BP 111/62
[2019-08-01 18:08] VITALS: BP 81/45
[2019-08-01] MEDS: EZETIMIBE 10 MG TABLET PO SCH (20:23)
[2019-08-01] MEDS: SIMVASTATIN 40 MG TABLET PO SCH (20:23)
[2019-08-02 00:46] VITALS: BP 91/50
[2019-08-02] MEDS: CEFAZOLIN PMX 2GM/50ML 50 ML IVPB SCH ×3 (03:56→20:59)
[2019-08-02 08:10] VITALS: BP 95/56
[2019-08-02] MEDS: FUROSEMIDE 20 MG TABLET PO SCH (09:27)
[2019-08-02] MEDS: POTASSIUM CHLORIDE 20 MEQ TAB.ER.PRT PO SCH (09:27)
[2019-08-02] MEDS: AMIODARONE 200 MG TABLET PO SCH (09:27)
[2019-08-02] MEDS: MEXILETINE 150 MG CAPSULE PO SCH ×2 (09:27→21:00)
[2019-08-02] MEDS: ASPIRIN 81 MG TABLET EC PO SCH (09:27)
[2019-08-02] MEDS: MULTIVITAMIN 1 TABLET PO SCH (09:27)
[2019-08-02] MEDS: MAGNESIUM OXIDE 400 MG TABLET PO SCH (09:27)
[2019-08-02] MEDS: SPIRONOLACTONE 25 MG TABLET PO SCH (09:28)
[2019-08-02] MEDS: LISINOPRIL 5 MG TABLET PO SCH (09:28)
[2019-08-02] MEDS: SODIUM CHLORIDE FLUSH 10ML SYR IVF SCH ×2 (09:28→21:00)
[2019-08-02 09:30] VITALS: BP 111/65
[2019-08-02 13:54] VITALS: BP 94/50
[2019-08-02 20:57] VITALS: BP 94/56
[2019-08-02] MEDS: EZETIMIBE 10 MG TABLET PO SCH (21:00)
[2019-08-02] MEDS: SIMVASTATIN 40 MG TABLET PO SCH (21:00)
[2019-08-03 01:03] VITALS: BP 91/50
[2019-08-03] MEDS: CEFAZOLIN PMX 2GM/50ML 50 ML IVPB SCH (04:55)
[2019-08-03 06:55] VITALS: BP 100/60
[2019-08-03] MEDS: SODIUM CHLORIDE FLUSH 10ML SYR IVF SCH (08:48)
[2019-08-03] MEDS: MAGNESIUM OXIDE 400 MG TABLET PO SCH (08:48)
[2019-08-03] MEDS: POTASSIUM CHLORIDE 20 MEQ TAB.ER.PRT PO SCH (08:48)
[2019-08-03] MEDS: SPIRONOLACTONE 25 MG TABLET PO SCH (08:49)
[2019-08-03] MEDS: MULTIVITAMIN 1 TABLET PO SCH (08:49)
[2019-08-03] MEDS: AMIODARONE 200 MG TABLET PO SCH (08:49)
[2019-08-03] MEDS: ASPIRIN 81 MG TABLET EC PO SCH (08:49)
[2019-08-03] MEDS: LISINOPRIL 5 MG TABLET PO SCH (08:49)
[2019-08-03] MEDS: MEXILETINE 150 MG CAPSULE PO SCH (08:49)
[2019-08-03] MEDS: FUROSEMIDE 20 MG TABLET PO SCH (08:50)
[2019-08-03] MEDS ORDERED: PROMETHAZINE 25MG TABLET PO PRN (09:00)
[2019-08-03] MEDS ORDERED: PROM25TA10 PO (12:01)
[2019-08-03] MEDS ORDERED: ERTAPENEM 1 GM in SODIUM CHLORIDE 0.9% 50 ML IV SCH (12:30)
[2019-08-03 14:33] LABS: CLOSTRIDIUM DIFFICILE TOXIN POSITIVE (Negative)
[2019-08-03 14:37] LABS: CLOSTRIDIUM DIFFICILE ANTIGEN POSITIVE
[2019-08-03] MEDS ORDERED: VANC125C11 PO (15:26)
== END 2019-08-03 16:20 | disposition home or self-care (01) | DRG 260 ==
LOC: CACL 05:50 → ORIP 11:07 → 5SO 12:41
PROVIDERS: ADMIT Internal Medicine Cardiovascular Disease; ATTEND Internal Medicine Cardiovascular Disease
PROC: 02PA3MZ Removal of Cardiac Lead from Heart, Percutaneous Approach (ICD-10-PCS; 2019-07-28)
PROC: 0JPT0PZ Removal of Cardiac Rhythm Related Device from Trunk Subcutaneous Tissue and Fascia, Open Approach (ICD-10-PCS; 2019-07-28)
PROC: 02HV33Z Insertion of Infusion Device into Superior Vena Cava, Percutaneous Approach (ICD-10-PCS; principal; 2019-08-01)
PROC: B5181ZA Fluoroscopy of Superior Vena Cava using Low Osmolar Contrast, Guidance (ICD-10-PCS; 2019-08-01)
DX: T82.7XXA Infection and inflammatory reaction due to other cardiac and vascular devices, implants and grafts, initial encounter (principal); I33.0 Acute and subacute infective endocarditis; L03.90 Cellulitis, unspecified; A04.72 Enterocolitis due to Clostridium difficile, not specified as recurrent; I25.5 Ischemic cardiomyopathy; I95.9 Hypotension, unspecified; E11.9 Type 2 diabetes mellitus without complications; R00.0 Tachycardia, unspecified; R63.0 Anorexia; Z20.828 Contact with and (suspected) exposure to other viral communicable diseases; Y83.1 Surgical operation with implant of artificial internal device as the cause of abnormal reaction of the patient, or of later complication, without mention of misadventure at the time of the procedure; I25.10 Atherosclerotic heart disease of native coronary artery without angina pectoris; Z88.5 Allergy status to narcotic agent; Z88.8 Allergy status to other drugs, medicaments and biological substances; Z84.89 Family history of other specified conditions; I25.2 Old myocardial infarction; Z83.1 Family history of other infectious and parasitic diseases; Z86.79 Personal history of other diseases of the circulatory system; Z87.891 Personal history of nicotine dependence; Z95.1 Presence of aortocoronary bypass graft; Z95.810 Presence of automatic (implantable) cardiac defibrillator
CPT/HCPCS: 33241; 33244; 36415; J3490; Q0169; 36573; 71045; 71046; 80048; 80053; 85025; 85651; 86140; 86480; 86850; 86900; 86923; 87040; 87070; 87075; 87077; 87186; 87205; 87324; 93005; 93312; 93321; 93325; G0378; J0690; J0712; J1335; J2405; J2704; J3010; C1751; C1773; J0330; U0001-CS

== ENCOUNTER 2019-09-01 08:00 | Outpatient (CLI) | payer OTHER ==
[~2019-09-01 08:00] MED LIST changes: +CEPH-376 PO; +PROM25TA10 PO; +VANC125C11 PO
[2019-09-06] MEDS ORDERED: OXYcodone 5 MG/5 ML ORAL.SOL UDC PO PRN (10:30)
[2019-09-06] MEDS ORDERED: FENTANYL PF 100 MCG/2ML IV PRN (10:30)
[2019-09-06] MEDS ORDERED: MEPERIDINE/PF 25MG/0.5ML IVPush PRN (10:30)
[2019-09-06] MEDS ORDERED: EPHEDRINE 50 MG/ML, 1ML IVPush PRN (10:30)
[2019-09-06] MEDS ORDERED: LABETALOL 5MG/ML, 20ML IV PRN (10:30)
[2019-09-06] MEDS ORDERED: hydrALAzine 20 MG/ML, 1ML IV PRN (10:30)
[2019-09-06] MEDS ORDERED: ONDANSETRON 2MG/ML, 2ML IVPush PRN (10:30)
[2019-09-06] MEDS ORDERED: HYDROmorphone 1 MG/ML, 1ML INJ IVPush PRN (10:30)
[2019-09-06] MEDS ORDERED: ACETAMINOPHEN 325 MG TABLET PO PRN (10:30)
[2019-09-06] MEDS ORDERED: PROMETHAZINE 25 MG/ML, 1ML IVPush PRN (10:30)
[2019-09-06] MEDS ORDERED: PLEASE ENTER HEIGHT AND WEIGHT MC SCH (11:00)
[2019-09-07] MEDS ORDERED: FENTANYL PF 250 MCG/5ML ONE (07:47)
[2019-09-07] MEDS ORDERED: LIDOCAINE-MPF 2% ,5ML ONE (07:49)
[2019-09-07] MEDS ORDERED: SUGAMMADEX 200 MG/2 ML IVPush ONE (08:27)
[2019-09-07] MEDS ORDERED: EPINEPHRINE 1 MG/ML, 1ML ONE (08:29)
[2019-09-07] MEDS ORDERED: DEXAMETHASONE 4 MG/ML, 1ML ONE (09:17)
[2019-09-07] MEDS ORDERED: HEPARIN 1,000 UNITS/ML, 10ML ONE ×2 (09:17→09:43)
[2019-09-07] MEDS ORDERED: SUCCINYLCHOLINE 20 MG/ML, 10ML ONE (09:17)
[2019-09-07] MEDS ORDERED: ONDANSETRON 2MG/ML, 2ML ONE (09:17)
[2019-09-07] MEDS ORDERED: PROPOFOL 10 MG/ML, 20ML ONE (09:17)
[2019-09-07] MEDS ORDERED: ROCURONIUM 10MG/ML,5ML ONE (09:17)
[2019-09-08] MEDS ORDERED: PROPOFOL 50 ML ONE (07:57)
[2019-09-08] MEDS ORDERED: FENTANYL PF 250 MCG/5ML ONE (07:57)
== END 2019-09-01 23:59 | disposition home or self-care (01) ==
LOC: CACL 08:00 → EDSTATUS 09-08 08:00
PROVIDERS: ATTEND Internal Medicine Cardiovascular Disease
DX: Z01.818 Encounter for other preprocedural examination (principal); Z11.59 Encounter for screening for other viral diseases; I25.5 Ischemic cardiomyopathy; I47.2 Ventricular tachycardia; Z88.5 Allergy status to narcotic agent; Z88.8 Allergy status to other drugs, medicaments and biological substances; Z86.19 Personal history of other infectious and parasitic diseases; Z79.82 Long term (current) use of aspirin; Z79.899 Other long term (current) drug therapy; Z72.89 Other problems related to lifestyle; Z87.891 Personal history of nicotine dependence; Z82.49 Family history of ischemic heart disease and other diseases of the circulatory system; Z82.3 Family history of stroke
CPT/HCPCS: 36415; 87635; J0171; J1100; J1644; J2405; J2704; J3010; J0330

== ENCOUNTER 2019-09-07 06:11 | Inpatient (IN) | payer OTHER ==
[~2019-09-07] VITALS: Ht 172.7 cm; Wt 78.0 kg
[2019-09-07] MEDS ORDERED: SODIUM CHLORIDE 0.9% 1,000 ML IV SCH (06:28)
[2019-09-07] MEDS ORDERED: MEXI150C PO (07:04)
[2019-09-07] MEDS ORDERED: TRIA10.8 NAS (07:04)
[2019-09-07] MEDS ORDERED: ASPI81TA45 PO (07:04)
[2019-09-07] MEDS ORDERED: NITR0.4T41 SL (07:04)
[2019-09-07] MEDS ORDERED: MULT-658 PO (07:04)
[2019-09-07] MEDS ORDERED: MAGN400T36 PO (07:04)
[2019-09-07] MEDS ORDERED: CEPH-376 PO (07:04)
[2019-09-07] MEDS ORDERED: AMIO200T42 PO (07:04)
[2019-09-07] MEDS ORDERED: LISI5TAB7 PO (07:04)
[2019-09-07] MEDS ORDERED: LORA10TA75 PO (07:04)
[2019-09-07 07:05] VITALS: BP 132/74
[2019-09-07 07:17] LABS: BASOPHILS # (AUTO) 0.02 x10^3/uL (0-0.1); BASOPHILS % (AUTO) 0 % (0-1); EOSINOPHILS # (AUTO) 0.08 x10^3/uL (0-0.4); EOSINOPHILS % (AUTO) 1 % (1-7); LYMPHOCYTES % (AUTO) 13 % (22-44); MD NO; MEAN CORPUSCULAR HGB CONC 32.1 g/dL (33.2-36.2); MONOCYTES # (AUTO) 0.49 x10^3/uL (0.2-0.8); MONOCYTES % (AUTO) 8 % (2-9); NEUTROPHILS # (AUTO) 4.63 x10^3/uL (1.8-6.8); NEUTROPHILS % (AUTO) 77 % (42-75); PLATELET COUNT 205 x10^3/uL (130-400); RED BLOOD COUNT 4.99 x10^6/uL (4.38-5.82)
[2019-09-07 07:25] LABS: ANION GAP 6 mmol/L (5-15); CALCIUM 8.6 mg/dL (8.5-10.1); CHLORIDE 109 mmol/L (98-107); CREATININE 1.21 mg/dL (0.7-1.3)
[2019-09-07] MEDS ORDERED: MEPERIDINE/PF 25MG/0.5ML IVPush PRN (08:00)
[2019-09-07] MEDS ORDERED: LABETALOL 5MG/ML, 20ML IV PRN (08:00)
[2019-09-07] MEDS ORDERED: OXYcodone 5 MG/5 ML ORAL.SOL UDC PO PRN (08:00)
[2019-09-07] MEDS ORDERED: EPHEDRINE 50 MG/ML, 1ML IVPush PRN (08:00)
[2019-09-07] MEDS ORDERED: HYDROmorphone 1 MG/ML, 1ML INJ IVPush PRN (08:00)
[2019-09-07] MEDS ORDERED: FENTANYL PF 100 MCG/2ML IV PRN (08:00)
[2019-09-07] MEDS ORDERED: ONDANSETRON 2MG/ML, 2ML IVPush PRN (08:00)
[2019-09-07] MEDS ORDERED: PROMETHAZINE 25 MG/ML, 1ML IVPush PRN (08:00)
[2019-09-07] MEDS ORDERED: ACETAMINOPHEN 325 MG TABLET PO PRN ×2 (08:00→12:00)
[2019-09-07] MEDS ORDERED: hydrALAzine 20 MG/ML, 1ML IV PRN (08:00)
[2019-09-07] MEDS ORDERED: LIDOCAINE PF 2%, 5ML ONE (08:10)
[2019-09-07] MEDS ORDERED: SUGAMMADEX 200 MG/2 ML IVPush ONE (08:10)
[2019-09-07] MEDS ORDERED: ROCURONIUM 10 MG/ML,10ML ONE (08:10)
[2019-09-07] MEDS ORDERED: SUCCINYLCHOLINE 20 MG/ML, 10ML ONE (08:10)
[2019-09-07] MEDS ORDERED: ONDANSETRON 2MG/ML, 2ML ONE (08:10)
[2019-09-07] MEDS ORDERED: PROPOFOL 10 MG/ML, 20ML ONE (08:10)
[2019-09-07] MEDS ORDERED: EPHEDRINE 50 MG/ML, 1ML ONE (08:10)
[2019-09-07] MEDS ORDERED: DEXAMETHASONE 4 MG/ML, 1ML ONE (08:10)
[2019-09-07] MEDS ORDERED: LIDOCAINE 2%, 20ML ONE (08:29)
[2019-09-07] MEDS ORDERED: ZOLPIDEM 5MG TABLET PO PRN (12:00)
[2019-09-07] MEDS ORDERED: NITROGLYCERIN SINGLE TAB 0.4 MG SL PRN (12:00)
[2019-09-07] MEDS ORDERED: LORATADINE 10 MG TABLET PO PRN (12:00)
[2019-09-07] MEDS ORDERED: PROMETHAZINE 25 MG/ML, 1ML ONE (12:13)
[2019-09-07 13:15] VITALS: BP 122/72
[2019-09-07] MEDS ORDERED: FLUTICASONE NASAL SPRAY 16GM NAS PRN (14:00)
[2019-09-07] MEDS: MEXILETINE 150 MG CAPSULE PO SCH ×2 (16:14→23:04)
[2019-09-07] MEDS: CEPHALEXIN 500 MG CAPSULE PO SCH ×2 (16:14→23:04)
[2019-09-07 18:57] VITALS: BP 132/73
[2019-09-08 00:37] VITALS: BP 112/64
[2019-09-08 06:57] VITALS: BP 141/66
[2019-09-08] MEDS ORDERED: CEFAZOLIN 1,000 MG ONE (08:29)
[2019-09-08] MEDS ORDERED: PROPOFOL 10 MG/ML, 50ML ONE (08:29)
[2019-09-08] MEDS ORDERED: PROPOFOL 10 MG/ML, 20ML ONE (08:29)
[2019-09-08] MEDS ORDERED: ONDANSETRON 2MG/ML, 2ML ONE (08:29)
[2019-09-08] MEDS: AMIODARONE 200 MG TABLET PO SCH (09:00)
[2019-09-08] MEDS: ASPIRIN 81 MG TABLET EC PO SCH (09:00)
[2019-09-08] MEDS: MEXILETINE 150 MG CAPSULE PO SCH ×3 (09:00→21:38)
[2019-09-08] MEDS: MAGNESIUM OXIDE 400 MG TABLET PO SCH (09:00)
[2019-09-08] MEDS: LISINOPRIL 5 MG TABLET PO SCH (09:00)
[2019-09-08] MEDS: MULTIVITAMIN 1 TABLET PO SCH (09:00)
[2019-09-08] MEDS: CEPHALEXIN 500 MG CAPSULE PO SCH ×3 (09:00→21:38)
[2019-09-08] MEDS ORDERED: HOLD MEDICATION MC PRN (10:30)
[2019-09-08] MEDS ORDERED: ACETAMINOPHEN 325 MG TABLET PO PRN (10:30)
[2019-09-08 11:45] VITALS: BP 117/64
[2019-09-08 13:55] VITALS: BP 144/65
[2019-09-08] MEDS: CEFAZOLIN PMX 1GM/50ML 50 ML IVPB SCH (16:59)
[2019-09-08 18:29] VITALS: BP 112/69
[2019-09-08] MEDS: SODIUM CHLORIDE FLUSH 10ML SYR IVF SCH (21:39)
[2019-09-08 21:41] VITALS: BP 116/70
[2019-09-09 00:48] VITALS: BP 103/66
[2019-09-09] MEDS: CEFAZOLIN PMX 1GM/50ML 50 ML IVPB SCH ×2 (01:36→21:44)
[2019-09-09 06:48] VITALS: BP 124/60
[2019-09-09] MEDS ORDERED: CEFAZOLIN PMX 1GM/50ML 50 ML IVPB ONE (07:30)
[2019-09-09] MEDS: SODIUM CHLORIDE 0.9% 1,000 ML IV SCH ×3 (08:25→21:44)
[2019-09-09] MEDS: MULTIVITAMIN 1 TABLET PO SCH (08:54)
[2019-09-09] MEDS: ASPIRIN 81 MG TABLET EC PO SCH (08:54)
[2019-09-09] MEDS: CEPHALEXIN 500 MG CAPSULE PO SCH ×3 (08:54→21:33)
[2019-09-09] MEDS: MEXILETINE 150 MG CAPSULE PO SCH ×3 (08:54→21:33)
[2019-09-09] MEDS: AMIODARONE 200 MG TABLET PO SCH (08:54)
[2019-09-09] MEDS: LISINOPRIL 5 MG TABLET PO SCH (08:54)
[2019-09-09] MEDS: MAGNESIUM OXIDE 400 MG TABLET PO SCH (08:54)
[2019-09-09] MEDS: SODIUM CHLORIDE FLUSH 10ML SYR IVF SCH ×2 (08:55→21:45)
[2019-09-09 12:34] VITALS: BP 124/67
[2019-09-09 12:39] VITALS: BP 128/74
[2019-09-09] MEDS ORDERED: FENTANYL PF 100 MCG/2ML ONE (12:45)
[2019-09-09] MEDS ORDERED: LIDOCAINE 2%, 20ML ONE (12:45)
[2019-09-09] MEDS ORDERED: MIDAZOLAM 1 MG/ML, 5ML ONE (12:45)
[2019-09-09] MEDS ORDERED: CEFAZOLIN 1,000 MG ONE (12:45)
[2019-09-09] MEDS ORDERED: CEFAZOLIN PMX 1GM/50ML 50 ML ONE (12:45)
[2019-09-09] MEDS ORDERED: LIDOCAINE 1%, 20ML ONE (13:30)
[2019-09-09] MEDS ORDERED: ONDANSETRON 2MG/ML, 2ML ONE (13:30)
[2019-09-09] MEDS ORDERED: ACETAMINOPHEN 325 MG TABLET PO PRN (15:00)
[2019-09-09] MEDS ORDERED: HOLD MEDICATION MC PRN (15:00)
[2019-09-09 20:44] VITALS: BP 106/67
[2019-09-09] MEDS ORDERED: SODIUM CHLORIDE FLUSH 10ML SYR IVF SCH (21:00)
[2019-09-09 21:40] VITALS: BP 98/60
[2019-09-10 03:45] VITALS: BP 124/77
[2019-09-10] MEDS: CEFAZOLIN PMX 1GM/50ML 50 ML IVPB SCH (05:36)
[2019-09-10 06:34] VITALS: BP 125/73
[2019-09-10] MEDS ORDERED: ACET325T26 PO (07:42)
[2019-09-10] MEDS: CEPHALEXIN 500 MG CAPSULE PO SCH (08:53)
[2019-09-10] MEDS: MEXILETINE 150 MG CAPSULE PO SCH (08:53)
[2019-09-10] MEDS: ASPIRIN 81 MG TABLET EC PO SCH (08:54)
[2019-09-10] MEDS: LISINOPRIL 5 MG TABLET PO SCH (08:54)
[2019-09-10] MEDS: MAGNESIUM OXIDE 400 MG TABLET PO SCH (08:54)
[2019-09-10] MEDS: AMIODARONE 200 MG TABLET PO SCH (08:54)
[2019-09-10] MEDS: MULTIVITAMIN 1 TABLET PO SCH (08:54)
[2019-10-13] MEDS ORDERED: AMIO200T42 PO (09:47)
[2019-10-13] MEDS ORDERED: CLOP75TA PO (09:47)
[2019-10-13] MEDS ORDERED: SPIR25TA PO (11:09)
[2019-10-13] MEDS ORDERED: CARV3.1212 PO (11:09)
[2019-10-13] MEDS ORDERED: COLC0.6C3 PO (11:09)
== END 2019-09-10 09:27 | disposition home or self-care (01) | DRG 227 ==
LOC: CACL 06:11 → ORIP 11:44 → 5SO 13:12 → DCLOUNGE 09-10 09:12
PROVIDERS: ADMIT Internal Medicine Cardiovascular Disease; ATTEND Internal Medicine Cardiovascular Disease
PROC: 02K83ZZ Map Conduction Mechanism, Percutaneous Approach (ICD-10-PCS; 2019-09-07)
PROC: 4A0234Z Measurement of Cardiac Electrical Activity, Percutaneous Approach (ICD-10-PCS; 2019-09-07)
PROC: 02K83ZZ Map Conduction Mechanism, Percutaneous Approach (ICD-10-PCS; 2019-09-07)
PROC: 02583ZZ Destruction of Conduction Mechanism, Percutaneous Approach (ICD-10-PCS; principal; 2019-09-07 08:00)
PROC: 0JH609Z Insertion of Cardiac Resynchronization Defibrillator Pulse Generator into Chest Subcutaneous Tissue and Fascia, Open Approach (ICD-10-PCS; 2019-09-08)
PROC: 02HL3KZ Insertion of Defibrillator Lead into Left Ventricle, Percutaneous Approach (ICD-10-PCS; 2019-09-08)
PROC: 02HK3KZ Insertion of Defibrillator Lead into Right Ventricle, Percutaneous Approach (ICD-10-PCS; 2019-09-08)
PROC: 02H63KZ Insertion of Defibrillator Lead into Right Atrium, Percutaneous Approach (ICD-10-PCS; 2019-09-08)
PROC: 02WA3MZ Revision of Cardiac Lead in Heart, Percutaneous Approach (ICD-10-PCS; 2019-09-09)
PROC: 4B02XTZ Measurement of Cardiac Defibrillator, External Approach (ICD-10-PCS; 2019-09-10)
DX: I47.2 Ventricular tachycardia (principal); T82.120A Displacement of cardiac electrode, initial encounter; E11.9 Type 2 diabetes mellitus without complications; E78.5 Hyperlipidemia, unspecified; I25.10 Atherosclerotic heart disease of native coronary artery without angina pectoris; I25.5 Ischemic cardiomyopathy; I44.7 Left bundle-branch block, unspecified; Z87.891 Personal history of nicotine dependence; Z95.1 Presence of aortocoronary bypass graft; Z79.84 Long term (current) use of oral hypoglycemic drugs; Y83.8 Other surgical procedures as the cause of abnormal reaction of the patient, or of later complication, without mention of misadventure at the time of the procedure; Y92.238 Other place in hospital as the place of occurrence of the external cause
CPT/HCPCS: 33225; 33249; 36005; 36415; 93641; 93654; J3490; 71045; 71046; 80048; 85025; 85347; 93005; 93306; 99156; 99157; C1732; C1760; C1766; C1769; C1779; C1887; C1892; C1894; C1895; G0378; J0171; J0690; J1100; J1644; J2250; J2405; J2550; J2704; J3010; C1730; C1882; C1900; J0330; J7030; Q9967

== ENCOUNTER → 2020-02-02 | Outpatient (CLI) | payer OTHER ==
[~2020-02-02] MED LIST changes: +ACET325T26 PO; +CARV3.1212 PO; +CLOP75TA PO; +COLC0.6C3 PO; +LORA10TA75 PO; +MAGN400T36 PO; +MULT-658 PO; +TRIA10.8 NAS
[2020-02-02 10:58] LABS: ALBUMIN 3.7 g/dL (3.4-5.0); ANION GAP 6 mmol/L (5-15); CALCIUM 8.5 mg/dL (8.5-10.1); CHLORIDE 105 mmol/L (98-107)
[2020-02-02 11:02] LABS: ALANINE AMINOTRANSFERASE 39 U/L (12-78); ALKALINE PHOSPHATASE 74 U/L (45-117); BILIRUBIN,TOTAL 0.5 mg/dL (0.2-1.0); TOTAL PROTEIN 7.1 g/dL (6.4-8.2)
[2020-02-02 11:05] LABS: BASOPHILS % (AUTO) 1 % (0-1); EOSINOPHILS % (AUTO) 1 % (1-7); LYMPHOCYTES % (AUTO) 14 % (22-44); MEAN CORPUSCULAR HEMOGLOBIN 26.2 pg (27.5-34.5); MEAN CORPUSCULAR HGB CONC 32.5 g/dL (33.2-36.2); MEAN PLATELET VOLUME 8.7 fL (7.4-10.4); MONOCYTES % (AUTO) 10 % (2-9); NEUTROPHILS % (AUTO) 74 % (42-75); PLATELET COUNT 192 x10^3/uL (130-400); RED BLOOD COUNT 4.77 x10^6/uL (4.38-5.82); RED CELL DISTRIBUTION WIDTH 17.5 % (9.4-14.8)
[2020-02-02 11:20] LABS: MD NO
== END | disposition home or self-care (01) ==
LOC: LAB 10:31
PROVIDERS: ATTEND Nurse Practitioner Family
DX: I13.0 Hypertensive heart and chronic kidney disease with heart failure and stage 1 through stage 4 chronic kidney disease, or unspecified chronic kidney disease (principal); N18.9 Chronic kidney disease, unspecified; E78.5 Hyperlipidemia, unspecified; I25.119 Atherosclerotic heart disease of native coronary artery with unspecified angina pectoris; I25.2 Old myocardial infarction; I25.5 Ischemic cardiomyopathy; I47.1 Supraventricular tachycardia; I47.2 Ventricular tachycardia
CPT/HCPCS: 36415; 80053; 83880; 85025

== ENCOUNTER 2020-07-06 05:58 | Inpatient (IN) | payer OTHER ==
[~2020-07-06] VITALS: Ht 172.7 cm; Wt 73.3 kg
[~2020-07-06 05:58] MED LIST changes: +EZET-56 PO; -EZET1TAB65 PO; -MULT1TAB57 PO; +MULT1TAB58 PO
--- NOTE | 2020-07-06 06:25 | NUR ---
MARLENA FROM [facility] FOR SOB AND POSSIBLE CHF EX. PT HAS CARDIAC HX INCLUDING MN, CABG X2, HTN, AND PACE MAKER. PT STATES HE HAS NOT BEEN DIAGNOSED WITH CHF BUT HAS HAD FOLLOW UP WITH CARDIOLOGST SAYING HE IS "HEADING THAT WAY". PT PLACED ON 2 L NC FOR COMFORT. SHANT AT [facility]
[2020-07-06] MEDS ORDERED: FUROSEMIDE 20 MG/2 ML IV ONE (06:30)
--- NOTE | 2020-07-06 06:51 | NUR ---
REPORT RECEIVED AND CARE ASSUMED.
--- NOTE | 2020-07-06 06:51 | NUR ---
REPORT GIVEN TO DIDI GARCIA
[2020-07-06] MEDS ORDERED: ENOXAPARIN 80 MG/0.8 ML SQ ONE (07:00)
[2020-07-06] MEDS ORDERED: FUROSEMIDE 20 MG/2 ML ONE (07:01)
[2020-07-06] MEDS ORDERED: LEVO25TA2 PO (07:11)
[2020-07-06] MEDS ORDERED: POTA10CA PO (07:11)
[2020-07-06] MEDS ORDERED: EZET-56 PO (07:11)
[2020-07-06] MEDS ORDERED: BUME1TAB21 PO (07:11)
--- NOTE | 2020-07-06 07:15 | NUR ---
package delivery room service runner completed. Pt aware of pending admission.
[2020-07-06 07:22] LABS: ALBUMIN 3.5 g/dL (3.4-5.0); ANION GAP 7 mmol/L (5-15); CALCIUM 8.7 mg/dL (8.5-10.1); CHLORIDE 109 mmol/L (98-107); CREATININE 1.94 mg/dL (0.7-1.3)
[2020-07-06 07:25] LABS: TROPONIN I 0.035 ng/mL (0.000-0.045)
--- NOTE | 2020-07-06 07:36 | NUR ---
Labs reviewed. Note BUN/Cr, BNP, and K+ all elevated. No response for Lasix 20mg IVP as yet. Order for pt admit noted. Pt aware.
--- NOTE | 2020-07-06 08:26 | NUR ---
Pt updated to wait for bed assignment. Asked if he wanted a breakfast tray ordered while he waits and he declined with c/o nausea verbalized. 600mL light yellow uop emptied from urinal with return to within reach with lid on.
[2020-07-06] MEDS ORDERED: BISACODYL 10 MG SUPP PR PRN (08:30)
[2020-07-06] MEDS ORDERED: ACETAMINOPHEN 325 MG TABLET PO PRN ×2 (08:30→14:30)
[2020-07-06] MEDS ORDERED: LORazepam 2 MG/ML, 1ML IVPush PRN (08:30)
[2020-07-06] MEDS ORDERED: POLYETHYLENE GLYCOL 17 GM PACKET PO PRN (08:30)
[2020-07-06] MEDS ORDERED: hydrALAzine 20 MG/ML, 1ML IVPush PRN (08:30)
[2020-07-06] MEDS ORDERED: DOCUSATE 100 MG CAPSULE PO PRN (08:30)
[2020-07-06] MEDS ORDERED: ONDANSETRON 2MG/ML, 2ML ONE (08:30)
[2020-07-06] MEDS ORDERED: ONDANSETRON 2MG/ML, 2ML IVPush PRN (08:30)
--- NOTE | 2020-07-06 08:35 | NUR ---
Pt given Zofran for nausea at this time. VS reassessed.
[2020-07-06] MEDS ORDERED: FAMOTIDINE 20 MG TABLET PO SCH (09:00)
--- NOTE | 2020-07-06 09:17 | NUR ---
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 States he never has it go away completely in the past. Still declince breakfast, but ice water provided x2 cups on his request. Urinal emptied of 275 light yellow uop at this time with return to within reach for future use.
--- NOTE | 2020-07-06 09:36 | NUR ---
Task RN: report called to Magi GARCIA on behalf of primary RN
[2020-07-06] MEDS ORDERED: FAMOTIDINE 20 MG TABLET ONE (09:55)
[2020-07-06 10:09] VITALS: BP 108/54
[2020-07-06 13:09] VITALS: BP 104/74
[2020-07-06 13:11] LABS: TROPONIN I 0.038 ng/mL (0.000-0.045)
[2020-07-06] MEDS ORDERED: NITROGLYCERIN SINGLE TAB 0.4 MG SL PRN (14:30)
[2020-07-06] MEDS ORDERED: LORATADINE 10 MG TABLET PO PRN (14:30)
[2020-07-06] MEDS ORDERED: FLUTICASONE NASAL SPRAY 16GM NAS SCH (16:00)
[2020-07-06] MEDS ORDERED: MEXILETINE HCL 200 MG CAP PO SCH (16:00)
[2020-07-06] MEDS ORDERED: ENOXAPARIN 40 MG/0.4 ML SQ SCH (16:30)
[2020-07-06] MEDS: MEXILETINE 150 MG CAPSULE PO SCH (16:54)
[2020-07-06] MEDS: ENOXAPARIN 40 MG/0.4 ML SQ SCH (16:54)
[2020-07-06] MEDS ORDERED: FUROSEMIDE 40 MG TABLET PO SCH (17:00)
[2020-07-06] MEDS ORDERED: CARVEDILOL 3.125 MG TABLET PO SCH (18:00)
[2020-07-06 19:06] VITALS: BP 103/65
[2020-07-06] MEDS: SIMVASTATIN 40 MG TABLET PO SCH (20:35)
[2020-07-06] MEDS: CARVEDILOL 3.125 MG TABLET PO SCH (20:35)
[2020-07-06] MEDS ORDERED: MELATONIN 5 MG TABLET PO PRN (21:00)
[2020-07-06] MEDS ORDERED: TEMAZEPAM 15 MG CAPSULE PO PRN (21:00)
[2020-07-06] MEDS ORDERED: TEMPLATE NON-FORMULARY MED. (Potassium Chloride** 10 MEQ) PO SCH (21:00)
[2020-07-07 00:34] VITALS: BP 96/58
[2020-07-07] MEDS: MEXILETINE 150 MG CAPSULE PO SCH ×2 (00:34→10:25)
[2020-07-07 05:18] LABS: BASOPHILS % (AUTO) 1 % (0-1); EOSINOPHILS % (AUTO) 1 % (1-7); LYMPHOCYTES % (AUTO) 17 % (22-44); MEAN CORPUSCULAR HEMOGLOBIN 27.9 pg (27.5-34.5); MEAN CORPUSCULAR HGB CONC 32.9 g/dL (33.2-36.2); MEAN PLATELET VOLUME 9.4 fL (7.4-10.4); MONOCYTES % (AUTO) 11 % (2-9); NEUTROPHILS % (AUTO) 70 % (42-75); PLATELET COUNT 120 x10^3/uL (130-400); RED BLOOD COUNT 3.97 x10^6/uL (4.38-5.82); RED CELL DISTRIBUTION WIDTH 15.8 % (9.4-14.8)
[2020-07-07] MEDS: ASPIRIN 81 MG TABLET EC PO SCH (05:18)
[2020-07-07] MEDS: LEVOTHYROXINE 75 MCG TABLET PO SCH (05:18)
[2020-07-07 05:22] LABS: ANION GAP 7 mmol/L (5-15); CALCIUM 8.7 mg/dL (8.5-10.1); CHLORIDE 108 mmol/L (98-107); CREATININE 1.69 mg/dL (0.7-1.3)
[2020-07-07 05:29] LABS: MD NO
[2020-07-07 07:16] VITALS: BP 109/60
[2020-07-07] MEDS ORDERED: REGADENOSON 0.4 MG/5 ML SYRINGE ONE (08:13)
[2020-07-07] MEDS ORDERED: SPIRONOLACTONE 25 MG TABLET PO SCH (09:00)
[2020-07-07] MEDS: LISINOPRIL 5 MG TABLET PO SCH (09:00)
[2020-07-07] MEDS: MULTIVITAMIN 1 TABLET PO SCH (09:00)
[2020-07-07] MEDS ORDERED: LISINOPRIL 5 MG TABLET PO SCH (09:00)
[2020-07-07] MEDS: MAGNESIUM OXIDE 400 MG TABLET PO SCH (09:00)
[2020-07-07 10:22] VITALS: BP 109/58
[2020-07-07] MEDS: CARVEDILOL 3.125 MG TABLET PO SCH ×2 (10:25→20:39)
[2020-07-07] MEDS: AMIODARONE 200 MG TABLET PO SCH (10:25)
[2020-07-07] MEDS: BUMETANIDE 1 MG TABLET PO SCH ×2 (10:25→16:44)
[2020-07-07] MEDS: SPIRONOLACTONE 25 MG TABLET PO SCH (10:25)
[2020-07-07] MEDS: EZETIMIBE 10 MG TABLET PO SCH (10:25)
[2020-07-07] MEDS: FAMOTIDINE 20 MG TABLET PO SCH (10:26)
[2020-07-07] MEDS ORDERED: MEXILETINE 200 MG HOMEMEDPO SCH (11:00)
[2020-07-07 12:32] VITALS: BP 112/65
[2020-07-07] MEDS ORDERED: TEMPLATE NON-FORMULARY CAPSULE HOMEMEDPO SCH (16:00)
[2020-07-07 16:43] VITALS: BP 103/62
[2020-07-07] MEDS: ENOXAPARIN 40 MG/0.4 ML SQ SCH (16:44)
[2020-07-07] MEDS: MEXILETINE HCL 200 MG CAP HOMEMEDPO SCH ×2 (16:45→20:40)
[2020-07-07 19:24] VITALS: BP 108/64
[2020-07-07] MEDS: SIMVASTATIN 40 MG TABLET PO SCH (20:40)
[2020-07-07] MEDS ORDERED: MEXILETINE HCL 200 MG CAP HOMEMEDPO SCH (21:00)
[2020-07-08 00:27] VITALS: BP 93/54
[2020-07-08 04:48] LABS: BASOPHILS % (AUTO) 1 % (0-1); EOSINOPHILS % (AUTO) 2 % (1-7); LYMPHOCYTES % (AUTO) 18 % (22-44); MD NO; MEAN CORPUSCULAR HEMOGLOBIN 27.6 pg (27.5-34.5); MEAN CORPUSCULAR HGB CONC 32.8 g/dL (33.2-36.2); MEAN PLATELET VOLUME 9.5 fL (7.4-10.4); MONOCYTES % (AUTO) 13 % (2-9); NEUTROPHILS % (AUTO) 67 % (42-75); PLATELET COUNT 125 x10^3/uL (130-400); RED BLOOD COUNT 4.28 x10^6/uL (4.38-5.82); RED CELL DISTRIBUTION WIDTH 15.2 % (9.4-14.8)
[2020-07-08 04:55] LABS: ANION GAP 5 mmol/L (5-15); CALCIUM 8.6 mg/dL (8.5-10.1); CHLORIDE 104 mmol/L (98-107); CREATININE 1.77 mg/dL (0.7-1.3)
[2020-07-08] MEDS: ASPIRIN 81 MG TABLET EC PO SCH (06:15)
[2020-07-08] MEDS: BUMETANIDE 1 MG TABLET PO SCH (06:15)
[2020-07-08] MEDS: LEVOTHYROXINE 75 MCG TABLET PO SCH (06:16)
[2020-07-08 06:45] VITALS: BP 106/52
[2020-07-08] MEDS: AMIODARONE 200 MG TABLET PO SCH (08:48)
[2020-07-08] MEDS: SPIRONOLACTONE 25 MG TABLET PO SCH (08:48)
[2020-07-08] MEDS: MULTIVITAMIN 1 TABLET PO SCH (08:49)
[2020-07-08] MEDS: FAMOTIDINE 20 MG TABLET PO SCH (08:49)
[2020-07-08] MEDS: LISINOPRIL 5 MG TABLET PO SCH (08:49)
[2020-07-08] MEDS: MAGNESIUM OXIDE 400 MG TABLET PO SCH (08:49)
[2020-07-08] MEDS: EZETIMIBE 10 MG TABLET PO SCH (08:49)
[2020-07-08] MEDS: CARVEDILOL 3.125 MG TABLET PO SCH (08:49)
[2020-07-08 08:50] VITALS: BP 116/65
[2020-07-08] MEDS: MEXILETINE HCL 200 MG CAP HOMEMEDPO SCH (08:50)
[2020-07-08] MEDS ORDERED: LEVO75TA PO (10:50)
[2020-07-08] MEDS ORDERED: BUME1TAB21 PO (10:50)
== END 2020-07-08 11:57 | disposition home or self-care (01) | DRG 291 ==
LOC: ED 08:57 → EDIP 09:38 → 5SO 10:24
PROVIDERS: ADMIT Internal Medicine Infectious Disease; ATTEND Family Medicine
DX: I13.0 Hypertensive heart and chronic kidney disease with heart failure and stage 1 through stage 4 chronic kidney disease, or unspecified chronic kidney disease (principal); I50.23 Acute on chronic systolic (congestive) heart failure; N17.9 Acute kidney failure, unspecified; E03.9 Hypothyroidism, unspecified; E78.5 Hyperlipidemia, unspecified; E87.5 Hyperkalemia; I25.10 Atherosclerotic heart disease of native coronary artery without angina pectoris; I25.5 Ischemic cardiomyopathy; Z96.652 Presence of left artificial knee joint; I48.0 Paroxysmal atrial fibrillation; N18.30 Chronic kidney disease, stage 3 unspecified; I25.2 Old myocardial infarction; Z79.899 Other long term (current) drug therapy; Z87.891 Personal history of nicotine dependence; Z95.0 Presence of cardiac pacemaker; Z95.1 Presence of aortocoronary bypass graft; Z88.5 Allergy status to narcotic agent
CPT/HCPCS: 36415; 96374; 96375; 99285; C8929; 71045; 78452; 78580; 80048; 82040; 83735; 83880; 84100; 84484; 85025; 85379; 93017; G0378; J1650; J2405; J2785; Q9957; A9502; A9540; A9558; J1940

== ENCOUNTER 2020-09-02 08:34 | Emergency (ER) | payer OTHER ==
[~2020-09-02] VITALS: Ht 165.1 cm; Wt 71.4 kg
[~2020-09-02 08:34] MED LIST changes: +BUME1TAB21 PO; +LEVO25TA2 PO; +LEVO75TA PO; +POTA10CA PO
--- NOTE | 2020-09-02 09:08 | NUR ---
PT TO ROOM 29 W/ C/O SOB STARTED 1 WK AGO. PT STATES HE HAS HX CHF AND HAS BEEN ADMITTED TO CHF EXACERBATION IN THE PAST. PT SPEAKNGIN FULL SENTENCES. PT ALSO C/O NAUSEA STATES IT IS CHRONIC AND NOT NEW BUT HAS WORSENED OVER THE LAST FEW DAYS. PT REFUSING NAUSEA MEDS AT THIS TIME. PT RESTING ON GURNEY. NADN. MONITORS APPLIED. VSS. WARM BLANKET PROVIDED. CALL LIGHT IN REACH. FAMILY AT BEDSIDE. PT EDUCATED TO CALL IF PT CHANGES HIS MIND ABOUT NAUSEA MEDICATION. PT VERBALIZES UNDERSTANDING.
[2020-09-02 09:29] LABS: BASOPHILS % (AUTO) 1 % (0-1); EOSINOPHILS % (AUTO) 1 % (1-7); LYMPHOCYTES % (AUTO) 17 % (22-44); MEAN CORPUSCULAR HEMOGLOBIN 27.7 pg (27.5-34.5); MEAN CORPUSCULAR HGB CONC 32.6 g/dL (33.2-36.2); MEAN PLATELET VOLUME 10.7 fL (7.4-10.4); MONOCYTES % (AUTO) 12 % (2-9); NEUTROPHILS % (AUTO) 70 % (42-75); PLATELET COUNT 138 x10^3/uL (130-400); RED BLOOD COUNT 4.62 x10^6/uL (4.38-5.82); RED CELL DISTRIBUTION WIDTH 15.1 % (9.4-14.8)
[2020-09-02] MEDS ORDERED: ONDANSETRON 2MG/ML, 2ML IVPush ONE (09:30)
[2020-09-02] MEDS ORDERED: SODIUM CHLORIDE FLUSH 10ML SYR IVF ONE (09:30)
[2020-09-02 09:38] LABS: ALANINE AMINOTRANSFERASE 46 U/L (12-78); ALBUMIN 3.6 g/dL (3.4-5.0); ANION GAP 6 mmol/L (5-15); CALCIUM 8.9 mg/dL (8.5-10.1); CHLORIDE 107 mmol/L (98-107)
--- NOTE | 2020-09-02 09:40 | NUR ---
PT RESTING ON GURNEY. NADN. REICH.
[2020-09-02 09:43] LABS: ALKALINE PHOSPHATASE 102 U/L (45-117); BILIRUBIN,TOTAL 0.9 mg/dL (0.2-1.0); TOTAL PROTEIN 6.7 g/dL (6.4-8.2); TROPONIN I < 0.015 ng/mL (0.000-0.045)
[2020-09-02] MEDS ORDERED: ONDANSETRON 2MG/ML, 2ML ONE (10:03)
--- NOTE | 2020-09-02 10:07 | NUR ---
PT CHART REVIEWED AND PLACED FOR RECHECK.
--- NOTE | 2020-09-02 10:36 | NUR ---
PT RESTING ON GURNEY. NADN. REICH.
--- NOTE | 2020-09-02 11:40 | NUR ---
PT RESTING ON GURNEY. NADN. REICH.
[2020-09-02 12:42] VITALS: BP 100/56
--- NOTE | 2020-09-02 12:43 | NUR ---
PT RESTING ON GURNEY. NADN. REICH.
== END 2020-09-02 13:21 | disposition home or self-care (01) ==
LOC: ED 10:44
DX: R06.00 Dyspnea, unspecified (principal); I13.0 Hypertensive heart and chronic kidney disease with heart failure and stage 1 through stage 4 chronic kidney disease, or unspecified chronic kidney disease; N18.9 Chronic kidney disease, unspecified; I50.9 Heart failure, unspecified; I25.2 Old myocardial infarction; R11.0 Nausea; I25.810 Atherosclerosis of coronary artery bypass graft(s) without angina pectoris; Z87.891 Personal history of nicotine dependence
CPT/HCPCS: 36415; 71045; 80053; 83880; 84484; 85025; 93005; 96374; 99285; J2405